=== PATIENT | male | born 1955 | race Caucasian/White ===

== ENCOUNTER 2025-08-26 13:24 | Emergency (ER) | payer MEDICARE, OTHER ==
[~2025-08-26] VITALS: Ht 170.2 cm; Wt 73.9 kg
[~2025-08-26 13:24] MED LIST: ACET-2605 PO; IBUP-1490 PO
[2025-08-26 14:12] VITALS: TEMP 97.9
[2025-08-26] MEDS ORDERED: ONDA4TAB5 PO (14:27)
[2025-08-26] MEDS ORDERED: CHOL400T28 PO (14:27)
[2025-08-26] MEDS ORDERED: ACET-2605 PO (14:27)
[2025-08-26] MEDS ORDERED: LACT10SO68 PO (14:27)
[2025-08-26] MEDS ORDERED: SENN-261 PO (14:27)
[2025-08-26] MEDS ORDERED: ATOR40TA PO (14:27)
[2025-08-26] MEDS ORDERED: METO25TA6 PO (14:27)
[2025-08-26] MEDS ORDERED: ACET-868 PO (14:27)
[2025-08-26] MEDS ORDERED: BICA50TA8 PO (14:27)
[2025-08-26] MEDS ORDERED: FERR325T23 PO (14:27)
[2025-08-26] MEDS ORDERED: OLAN5TAB3 PO (14:27)
[2025-08-26] MEDS ORDERED: CRAN400C PO (14:27)
[2025-08-26] MEDS ORDERED: CYAN-51 PO (14:27)
[2025-08-26] MEDS ORDERED: DOCU-141 PO (14:27)
[2025-08-26] MEDS ORDERED: KETOROLAC TROMETHAMINE 15 MG/ML VIAL ONE (14:32)
[2025-08-26] MEDS: IV NS 0.9% 1,000 ML BAG IV ONE (14:45)
[2025-08-26] MEDS: KETOROLAC TROMETHAMINE 15 MG/ML VIAL IV ONE (14:50)
[2025-08-26 15:39] LABS: PLATELET COUNT (AUTO) 196 K/uL (150-450); RED BLOOD CELL COUNT(AUTO) 3.88 MIL/uL (4.5-6.0); RED CELL DISTRIBUTION WIDTH 20.0 % (11.5-15.0); WHITE BLOOD COUNT (AUTO) 4.8 K/uL (4.3-11.0)
[2025-08-26 15:52] LABS: INR 1.06 (0.91-1.10)
[2025-08-26 16:00] LABS: CALCIUM, SERUM 7.5 mg/dL (8.5-10.1); CREATININE 0.8 mg/dL (0.6-1.3); SODIUM SERUM 148.0 mmol/L (136-145); UREA NITROGEN, BLOOD 10.0 mg/dL (7-18)
[2025-08-26 16:25] LABS: APPEARANCE,URINE CLOUDY (CLEAR); BLOOD, URINE 3+ Ery/uL (NEGATIVE); LEUKOCYTE ESTERASE ,URINE 3+ (NEGATIVE); NITRITE, URINE NEGATIVE (NEGATIVE); UGLUCOSE NEGATIVE (NEGATIVE)
[2025-08-26 16:30] LABS: ADD URINE CULTURE YES
[2025-08-26] MEDS ORDERED: CEPH500C2 PO (16:42)
[2025-08-26 18:16] VITALS: BP 118/65; O2SAT 99
== END 2025-08-26 18:17 ==
LOC: ER 13:41
DX: N39.0 Urinary tract infection, site not specified (principal); J44.9 Chronic obstructive pulmonary disease, unspecified; I10 Essential (primary) hypertension; E78.5 Hyperlipidemia, unspecified; D64.9 Anemia, unspecified; C79.51 Secondary malignant neoplasm of bone; F20.9 Schizophrenia, unspecified; Z79.899 Other long term (current) drug therapy; Z85.038 Personal history of other malignant neoplasm of large intestine; Z85.05 Personal history of malignant neoplasm of liver
CPT/HCPCS: 99285; 74176; 96374; 96361; 85025; 80048; 87086; 83690; 81001; 36415; 85730; J1885; J7030; 87186-TC